=== PATIENT | female | born 1975 | race Two or more races ===

== ENCOUNTER 2016-10-28 12:07 | Emergency (ER) | payer OTHER ==
[2016-10-28] MEDS ORDERED: NON (12:53)
== END 2016-10-28 13:48 ==
LOC: EDMED 12:07
PROC: 0HQGXZZ Repair Left Hand Skin, External Approach (ICD-10-PCS; principal; 2016-10-28)
DX: S61.012A Laceration without foreign body of left thumb without damage to nail, initial encounter (principal); Z23 Encounter for immunization; W26.0XXA Contact with knife, initial encounter; Y93.G9 Activity, other involving cooking and grilling; Y92.019 Unspecified place in single-family (private) house as the place of occurrence of the external cause; Y99.8 Other external cause status